=== PATIENT | female | born 1945 | race African-American/Black ===

== ENCOUNTER 2016-11-08 04:27 | Emergency (ER) | payer MEDICARE, MEDICAID ==
[~2016-11-08] VITALS: Ht 162.6 cm; Wt 92.0 kg
[~2016-11-08 04:27] MED LIST: AMLO5TAB4 PO; ASPI-1035 PO; CLON0.1T PO; FERR-63 PO; LISI40TA4 PO; PROT40 PO; SUCR1ORA2 PO; SULI200T4 PO
[2016-11-08] MEDS ORDERED: ONDANSETRON HCL 4MG/2ML VIAL IV STA (04:50)
[2016-11-08] MEDS ORDERED: KETOROLAC 30MG/ML VIAL IV STA (04:50)
[2016-11-08] MEDS ORDERED: DIAZEPAM 5 MG/ML 2ML CPJ IV ONE (05:00)
[2016-11-08 05:10] LABS: BASOPHILS % 0.8 % (0.0-2.0); EOSINOPHILS % 3.5 % (0.0-5.0); HEMOGLOBIN. 10.4 g/dL (12.0-16.0); LYMPHOCYTES % 19.6 % (20.0-50.0); MEAN CORPUSCULAR HEMOGLOBIN 30.1 pg (28.0-32.0); MEAN CORPUSCULAR HGB CONC 33.5 g/dL (31.0-37.0); MEAN CORPUSCULAR VOLUME 89.6 fL (81.0-99.0); MEAN PLATELET VOLUME 9.5 fl (7.4-10.4); NEUTROPHILS % 65.1 % (40.0-76.0); PLATELET 249 x1000/uL (130-400); RED BLOOD CELL COUNT 3.46 mill/uL (4.2-5.4); RED CELL DISTRIBUTION WIDTH 14.3 % (11.6-14.6); WHITE BLOOD COUNT 7.8 x1000/uL (4.5-11.0)
[2016-11-08 05:14] LABS: PROTHROMBIN TIME 10.6 sec
[2016-11-08 05:22] LABS: ALANINE AMINOTRANSFERASE 21 IU/L (13-61); ALBUMIN 3.4 g/dL (3.4-5.0); ANION GAP 14; CALCIUM 8.9 mg/dL (8.5-10.1); CARBON DIOXIDE 28 mEq/L (21-32); CHLORIDE 106 mEq/L (98-107); INDEX HEMOLYSI 3 (1-3); INDEX ICTERIC 1 (1-4); INDEX LIPEMIC 1 (1-3); UREA NITROGEN BLOOD 14 mg/dL (7-21); eGFR > 60 mL/min (>60)
[2016-11-08 06:40] VITALS: BP 135/76
== END 2016-11-08 06:42 | disposition home or self-care (01) ==
LOC: ER 04:32
DX: R10.9 Unspecified abdominal pain (principal); I10 Essential (primary) hypertension; E11.9 Type 2 diabetes mellitus without complications; M19.90 Unspecified osteoarthritis, unspecified site; J45.909 Unspecified asthma, uncomplicated; Z88.6 Allergy status to analgesic agent; Z79.899 Other long term (current) drug therapy; Z79.82 Long term (current) use of aspirin
CPT/HCPCS: 36415; 71010; 80053; 83690; 85025; 85610; 93005; 96374; 96375; 99285; J1885; J2405

== ENCOUNTER 2017-05-14 10:33 | Emergency (ER) | payer MEDICARE, MEDICAID ==
[~2017-05-14] VITALS: Ht 162.6 cm; Wt 96.0 kg
[~2017-05-14 10:33] MED LIST changes: -ASPI-1035 PO; +ASPI-1158 PO
[2017-05-14] MEDS ORDERED: SITA1TBM7 PO (10:49)
[2017-05-14] MEDS ORDERED: OCD PO (10:49)
[2017-05-14] MEDS ORDERED: METH2.5T PO (10:49)
[2017-05-14] MEDS ORDERED: FOLI-43 PO (10:49)
[2017-05-14] MEDS ORDERED: LOSA25TA12 PO (10:49)
[2017-05-14] MEDS ORDERED: PRED1TAB PO (10:49)
[2017-05-14] MEDS ORDERED: SODIUM CHLORIDE 0.9% 500 ML IV ONE (11:05)
[2017-05-14] MEDS ORDERED: TRAMADOL 50MG TABLET PO ONE (11:15)
[2017-05-14 11:25] LABS: BASOPHILS % 0.8 % (0.0-2.0); EOSINOPHILS % 2.9 % (0.0-5.0); HEMATOCRIT. 36.2 % (36.0-48.0); HEMOGLOBIN. 12.2 g/dL (12.0-16.0); LYMPHOCYTES % 19.4 % (20.0-50.0); MEAN CORPUSCULAR HEMOGLOBIN 30.6 pg (28.0-32.0); MEAN CORPUSCULAR VOLUME 90.7 fL (81.0-99.0); MEAN PLATELET VOLUME 8.9 fl (7.4-10.4); NEUTROPHILS % 68.9 % (40.0-76.0); PLATELET 241 x1000/uL (130-400); RED BLOOD CELL COUNT 3.99 mill/uL (4.2-5.4); RED CELL DISTRIBUTION WIDTH 15.1 % (11.6-14.6)
[2017-05-14 11:35] LABS: CARBON DIOXIDE 25 mEq/L (21-32); CHLORIDE 104 mEq/L (98-107)
[2017-05-14 13:14] VITALS: BP 139/79
== END 2017-05-14 13:27 | disposition home or self-care (01) ==
LOC: ER 10:53
DX: I10 Essential (primary) hypertension (principal); R51 Headache; J45.909 Unspecified asthma, uncomplicated; M19.90 Unspecified osteoarthritis, unspecified site; Z88.6 Allergy status to analgesic agent; Z88.5 Allergy status to narcotic agent
CPT/HCPCS: 36415; 80048; 85025; 96360; 99284; J7040

== ENCOUNTER 2017-10-06 09:41 | Emergency (ER) | payer MEDICARE, MEDICAID ==
[~2017-10-06] VITALS: Ht 162.6 cm; Wt 92.0 kg
[~2017-10-06 09:41] MED LIST changes: +ERGO400T7 PO; +ERYTHROMYCIN 0.5% BOTHEYE; -FERR-63 PO; +FLUT1DIS3 IH; +FOLI-43 PO; +GUAI-735 PO; +GUAI-741 PO; +KETO5DRO37 EACHEYE; -LISI40TA4 PO; +LOSA25TA12 PO; +OCD PO; +PRED1TAB PO; -PROT40 PO; +SITA1TBM7 PO; -SUCR1ORA2 PO; -SULI200T4 PO
[2017-10-06 10:25] LABS: BASOPHILS % 0.7 % (0.0-2.0); EOSINOPHILS % 5.2 % (0.0-5.0); HEMATOCRIT. 32.5 % (36.0-48.0); HEMOGLOBIN. 11.1 g/dL (12.0-16.0); LYMPHOCYTES % 20.9 % (20.0-50.0); MEAN CORPUSCULAR HEMOGLOBIN 31.3 pg (28.0-32.0); MEAN CORPUSCULAR VOLUME 91.3 fL (81.0-99.0); MEAN PLATELET VOLUME 9.2 fl (7.4-10.4); MONOCYTES % 13.6 % (2.0-8.0); NEUTROPHILS % 59.6 % (40.0-76.0); PLATELET 228 x1000/uL (130-400); RED BLOOD CELL COUNT 3.56 mill/uL (4.2-5.4); RED CELL DISTRIBUTION WIDTH 15.9 % (11.6-14.6)
[2017-10-06 10:32] LABS: PROTHROMBIN TIME 10.4 sec (9.4-11.6)
[2017-10-06 10:36] LABS: CHLORIDE 107 mEq/L (98-107)
[2017-10-06] MEDS ORDERED: AZITHROMYCIN 500 MG TABLET PO ONE (12:30)
[2017-10-06 12:37] VITALS: BP 136/71
== END 2017-10-06 13:02 | disposition home or self-care (01) ==
LOC: ER 10:51
DX: J21.9 Acute bronchiolitis, unspecified (principal); E11.9 Type 2 diabetes mellitus without complications; I10 Essential (primary) hypertension; J44.9 Chronic obstructive pulmonary disease, unspecified; D64.9 Anemia, unspecified; J45.909 Unspecified asthma, uncomplicated; Z88.6 Allergy status to analgesic agent; Z88.5 Allergy status to narcotic agent; Z96.659 Presence of unspecified artificial knee joint
CPT/HCPCS: 36415; 71045; 80053; 83880; 84484; 85025; 85610; 93005; 99285

== ENCOUNTER 2019-04-21 13:53 | Emergency (ER) | payer MEDICARE, MEDICAID ==
[~2019-04-21] VITALS: Ht 170.2 cm; Wt 88.0 kg
[~2019-04-21 13:53] MED LIST changes: -LOSA25TA12 PO; +LOSA25TA26 PO
[2019-04-21 15:02] LABS: CHLORIDE 110 mEq/L (98-107)
[2019-04-21 15:04] LABS: BASOPHILS % 0.9 % (0.0-2.0); EOSINOPHILS % 3.1 % (0.0-5.0); HEMATOCRIT. 34.9 % (36.0-48.0); HEMOGLOBIN. 11.6 g/dL (12.0-16.0); LYMPHOCYTES % 34.6 % (20.0-50.0); MEAN CORPUSCULAR HEMOGLOBIN 29.3 pg (28.0-32.0); MEAN CORPUSCULAR VOLUME 87.8 fL (81.0-99.0); MEAN PLATELET VOLUME 9.9 fl (7.4-10.4); MONOCYTES % 9.5 % (2.0-8.0); NEUTROPHILS % 51.9 % (40.0-76.0); PLATELET 225 x1000/uL (130-400); RED BLOOD CELL COUNT 3.98 mill/uL (4.2-5.4); RED CELL DISTRIBUTION WIDTH 16.1 % (11.6-14.6)
[2019-04-21 17:09] LABS: CREATINE KINASE 92 IU/L (26-192)
[2019-04-21 17:10] LABS: CREATINE KINASE MB FRACTION < 1.0 ng/mL (0.5-3.6)
[2019-04-21 18:26] LABS: CLARITY URINE CLOUDY (CLEAR); COLOR URINE YELLOW (YELLOW); KETONES URINE NEGATIVE (NEGATIVE); LEUKOCYTE ESTERASE URINE NEGATIVE (NEGATIVE); NITRITE URINE NEGATIVE (NEGATIVE); OCCULT BLOOD URINE NEGATIVE (NEGATIVE); PROTEIN URINE NEGATIVE (NEGATIVE); SPECIFIC GRAVITY URINE 1.026 (1.005-1.030); UROBILINOGEN URINE 0.2 E.U./dL (0.2-1.0)
[2019-04-21] MEDS ORDERED: CLONIDINE 0.1MG TABLET PO ONE (18:45)
[2019-04-21 20:06] VITALS: BP 176/86
== END 2019-04-21 20:15 | disposition home or self-care (01) ==
LOC: ER 13:53
DX: R53.1 Weakness (principal); R11.2 Nausea with vomiting, unspecified; R53.81 Other malaise; I10 Essential (primary) hypertension; J44.9 Chronic obstructive pulmonary disease, unspecified; E11.9 Type 2 diabetes mellitus without complications; R90.82 White matter disease, unspecified; Z98.890 Other specified postprocedural states; Z79.899 Other long term (current) drug therapy; Z88.5 Allergy status to narcotic agent; Z88.6 Allergy status to analgesic agent; Z88.8 Allergy status to other drugs, medicaments and biological substances
CPT/HCPCS: 36415; 71045; 81003; 82550; 82553; 83880; 84484; 93005; 99284